=== PATIENT | male | born 1995 | race Two or more races ===

== ENCOUNTER 2018-01-01 09:42 | Emergency (ER) | payer MEDICAID ==
[~2018-01-01] VITALS: Ht 177.8 cm; Wt 92.5 kg
[~2018-01-01 09:42] MED LIST: AMOX500C2; FLUT50SP13; MOME110A; PRED10PA
[2018-01-01 09:47] VITALS: BP 131/74
== END 2018-01-01 13:15 | disposition home or self-care (01) ==
LOC: ER 09:43
DX: M79.671 Pain in right foot (principal); Z79.899 Other long term (current) drug therapy
CPT/HCPCS: 73630

== ENCOUNTER 2020-12-02 13:41 | Emergency (ER) | payer OTHER, MEDICAID ==
[~2020-12-02] VITALS: Ht 177.8 cm; Wt 94.3 kg
[2020-12-02 15:35] VITALS: BP 136/71
== END 2020-12-02 16:29 | disposition home or self-care (01) ==
LOC: ER 13:41
DX: S00.03XA Contusion of scalp, initial encounter (principal); W19.XXXA Unspecified fall, initial encounter; Y93.89 Activity, other specified; Y92.89 Other specified places as the place of occurrence of the external cause; Y99.8 Other external cause status
CPT/HCPCS: 70450